=== PATIENT | female | born 1950 | race Caucasian/White ===

== ENCOUNTER 2022-07-05 08:36 | Day surgery (SDC) | payer OTHER, SELFPAY ==
[2022-06-27 09:46] VITALS: BMI 23.6
[2022-07-05] VITALS (13 sets, daily range): BP systolic 109–167; BP diastolic 46–89; PULSE 52–84; RESP 10–20; TEMP 35.8–36.6; O2SAT 90–100; BMI 23.6; BMI 24.5
--- NOTE | 2022-07-05 07:21 | DI.RAD.S_ITS ---
PROCEDURE: XR HIP W PEL IF DONE LT 2V INDICATIONS: INNER OP PICS. TECHNIQUE: 4 intraoperative views of the hip were acquired. COMPARISON: [facility], CR, XR HIP W PEL IF DONE LT 2V, 07/05/2022, 13:49. [facility], CR, XR PELVIS WITH LATERAL HIP LEFT, 04/11/2022, 15:10. FINDINGS: Left hip arthroplasty. Arthroplasty projects in the expected location. IMPRESSION: Intraoperative guidance provided. Dictated by: lAex Vallejo M.D. on 07/05/2022 at 16:41 Approved by: Alex Vallejo M.D. on 07/05/2022 at 16:42
[2022-07-05] MEDS: LACTATED RINGERS 1,000 ML 42 ML IV (09:30)
[2022-07-05] MEDS: CELECOXIB 200 MG CAPSULE PO (09:31)
[2022-07-05] MEDS: ACETAMINOPHEN 325 MG TABLET 975 MG PO (09:31)
[2022-07-05] MEDS: VANCOMYCIN 1,000 MG/200 ML PIGGYBACK 200 MG IV (10:14)
--- NOTE | 2022-07-05 10:53 | PM.PREOP ---
Pre-operative Note COVID-19 COVID-19 status: Negative Interval Note History & Physical reviewed/Exam performed by Physician: Yes Changes to H&P: No
--- NOTE | 2022-07-05 10:54 | PM.OP.1 ---
Operative Date/Time/Diagnoses Date of procedure: 07/05/22 Time of procedure: 11:30 Pre-op diagnosis: Severe left hip OA Post-op diagnosis: same Procedure & Clinicians Procedure: Left total hip arthroplasty anterior approach Same procedure as scheduled: Yes Indications: The patient has had progressively worsening left hip pain with radiographic changes consistent with arthritis. Non-operative management has failed and the patient has requested total hip replacement. The risks, benefits and alternatives to surgery were discussed with the patient prior to proceeding. Risks discussed included, but were not limited to, failure to relieve pain, leg length discrepancy, dislocation, stiffness, infection, nerve damage, deep venous thrombosis, pulmonary embolism, stroke, coma, heart attack, permanent paralysis and , as well as the potential need for eventual revision of the prosthetic. Surgeon: Jessica Cardenas Histology Technologist: An Jimenez Anesthesia Type: Spinal Operative Notes Findings: Severe hip osteoarthritis, soft femur, acceptable stability Closure Type: primary Specimen(s): none sent Prosthetic devices, grafts, tissues, transplants, or devices: Cardenas and Nephew anthology standard offset size 6, size 50 R3 cup, +0 Oxinium head,one 6.5 mm screw, neutral poly liner Estimated Blood Loss (mL): 250 Blood products transfused: none Procedure in detail: The patient was brought to the operating room. Patient was carefully positioned in the supine position. Time-out was performed and antibiotics were given. Anesthesia was induced. She was positioned in the on the table in order to allow hyperextension of the hip. The left lower extremity was prepped and draped in a standard sterile fashion. An anterior left hip incision was made 1 fingerbreadth lateral to the anterior superior iliac spine and extended distally towards the greater trochanter. Dissection was carried out through skin and subcutaneous tissues. Superficial hemostasis was achieved. The fascia over the tensor fascia cristian was defined and incised with a knife. Two Allis clamps were used to grasp the fascia. Tensor fascia cristian was retracted laterally. A gelpi retractor was placed. Dissection was carried out down along the neck. The circumflex vessels were carefully identified and cauterized with the Aqua Mantis. There was good visualization of the femoral neck. A Cobra was placed superior to the neck and the gluteus fibers were carefully stripped from that superior aspect of the capsule. A 2nd retractor was placed along the inferior aspect of the neck. The rectus insertion along the capsule was partially released. A 3rd retractor that was then gently placed over the rim of the acetabulum under the rectus. Capsule was carefully incised and released from the intertrochanteric line circumferentially superior to the mid sagittal line and inferiorly to the mid sagittal line until the lesser trochanter was palpable. A tag stitch was placed both in the superior and inferior limb of the capsular insertion. Along the acetabulum capsule was also released up to the mid sagittal 12:00 position. A portion of the labrum was resected. A saw was used to perform an osteotomy at the level of the intertrochanteric line and the junction of the superior femoral neck leaving approximately 1 finger breath of residual inferior neck above the lesser trochanter. A 2nd cut was made along the femoral neck at the base of the head and a napkin ring of neck was removed. Corkscrew was placed in the femoral head and the head was removed without difficulty. Retractors were then repositioned around the acetabulum. Residual labrum was resected and additional osteophytes were removed. A reamer that was 4 mm below the templated size was placed by hand in the acetabulum and it was reamed to centralize the acetabulum. It was then reamed up to 2 under the templated size and fluoroscopy was brought in to confirm the position of the reaming and depth of reaming. I reamed 1 under the anticipated size. A trial cup was placed and noted that it was appropriately sized and fluoroscopy confirmed position and depth. The component was open and inserted without difficulty fluoroscopic imaging was used to confirm that the cup had been adequately seated and was well positioned. It was further stabilized with a single screw. Neutral poly liner was placed. The cup was tested and noted to be stable. Attention was then directed to the femur. The femur was gently hyperextended additional capsular release was performed as needed in order to allow adequate visualization of the proximal femur with elevation of the femur. Patient was placed in a hyperextended slightly adducted position with maximum external rotation. Box osteotome was used to check for any residual neck as well as sclerotic bone along the trochanter. Viburnum pepper was placed in the femur. Additional broaching was performed. Canal finder was used to determine the alignment of the canal and position. Size 1 broach was placed. The canal was then appropriately broached up to the templated size as long as there was adequate stability of the broach and serial advancement of the broach without excessive impingement. Specific attention was directed at avoiding varus attempting to direct the distal aspect of the broach more anteriorly and avoiding excessive anteversion. Trial reduction showed acceptable range of motion, good stability, no posterior impingement, buddhism of leg length and appropriate lateral shuck. I also hyperflexed the hip and checked that there was no impingement anteriorly and there was good stability with flexion, adduction and internal rotation. Marcaine and Exparel were injected. The stem was placed without difficulty. Repeat trial reduction and x-ray showed acceptable overall position, length, and no evidence of the femoral fracture. Final head was placed. Wound was meticulously irrigated with normal saline. The hip was reduced and additional Exparel and Marcaine were injected. The capsule was closed with interrupted nonabsorbable sutures. The fascia of the tensor was closed with interrupted and running Vicryl. No drain was placed. Any tensor fascia cristian muscle that appeared to be contused or injured which was a minimal amount was carefully resected. Capsule around the tensor was injected with Exparel and Marcaine. The skin was closed with barbed stitches for the subcutaneous tissue and skin. We also used surgical glue. The wound was dressed sterilely. The wound was meticulously irrigated with normal saline. Patient was transferred to recovery room in satisfactory condition. Post-operative Condition: stable Disposition: Acute Care Plan for aftercare: The patient will be maintained on a standard total hip replacement protocol with weight bearing as tolerated and anterior hip precautions. The patient will receive Aspirin and sequential compression devices for DVT prophylaxis. The patient will be discharged home when safe for the home environment.
[2022-07-05] MEDS: diphenhydrAMINE 50 MG/ML VIAL 12.5 MG IV (11:16)
--- NOTE | 2022-07-05 11:17 | SUR.PREOP ---
Pt c/o itching, skin red to neck and upper back, no bumps, rashes or hives, no sob or tongue swelling. Medicated with Benedryl.
[2022-07-05] MEDS: CEFAZOLIN 2 GM/100 ML PREMIX 100 ML IV ×2 (11:30→19:49)
[2022-07-05] MEDS: TRANEXAMIC ACID 1,000 MG VIAL 2000 MG INJ ×2 (11:53→13:21)
--- NOTE | 2022-07-05 12:01 | SUR.OPER ---
Supine on padded [place] table with bilateral legs secured in padded positioning boots and suspended in positioning spars, operative leg in traction per surgeon. Head on one pillow. Arm on non-operative side secured on padded armboard <90 degrees abduction. Arm on operative side padded and resting across chest then secured with tape over sheet. Padded perineal post in place per surgeon.
[2022-07-05] MEDS: BUPIVACAINE LIPOSOME 266 MG/20 ML VIAL INJ (12:11)
--- NOTE | 2022-07-05 14:00 | DI.RAD.S_ITS ---
PROCEDURE: XR HIP W PEL IF DONE LT 2V INDICATIONS: LEFT TOTAL ANTERIOR HIP TECHNIQUE: AP pelvis with lateral view(s) of the left hip(s). COMPARISON: [facility], CR, XR PELVIS WITH LATERAL HIP LEFT, 04/11/2022, 15:10. [facility], CR, XR HIP W PEL IF DONE LT 2V, 07/05/2022, 12:57. FINDINGS: Bones: Patient is status post placement of a left total hip prosthesis. Surgical hardware appears in good position without evidence for hardware complication. No acute osseous abnormality is seen. There is some subcutaneous air noted in the soft tissues about the hip consistent with the recent surgery. There is mild osteoarthritic degenerative change involving the right hip. Soft tissues: The visualized bowel gas pattern is normal. No suspicious soft tissue calcifications. IMPRESSION: 1. Satisfactory postoperative appearance left total hip prosthesis. 2. No evidence for acute osseous abnormality. 3. Mild osteoarthritic degenerative change right hip. Dictated by: Pillo Durham M.D. on 07/05/2022 at 14:31 Approved by: Pillo Durham M.D. on 07/05/2022 at 14:35
[2022-07-05] MEDS: OXYCODONE IR 5 MG TABLET PO (14:27)
--- NOTE | 2022-07-05 14:34 | SUR.PHASEI ---
Report called to JOSE Rock.
--- NOTE | 2022-07-05 15:04 | SUR.PHASEI ---
Patient transferred to the floor with her belongings bag and walker. Report given to Pranav. VS stable. IV saline locked. Left hip dressing CDI.
[2022-07-05] MEDS: LACTATED RINGERS 1,000 ML 125 ML IV (15:24)
[2022-07-05] MEDS: IBUPROFEN 400 MG TABLET PO (17:49)
[2022-07-05] MEDS: ACETAMINOPHEN 325 MG TABLET 650 MG PO (17:49)
[2022-07-05] MEDS: ASPIRIN EC 81 MG TABLET PO (21:24)
[2022-07-05] MEDS: DOCUSATE 100 MG CAPSULE PO (21:24)
[2022-07-05] MEDS: SUMAtriptan 25 MG TABLET 50 MG PO (21:28)
[2022-07-06] MEDS: ACETAMINOPHEN 325 MG TABLET 650 MG PO ×2 (00:02→05:48)
[2022-07-06] MEDS: IBUPROFEN 400 MG TABLET PO ×2 (00:03→05:47)
[2022-07-06 00:39] VITALS: BP 158/75; PULSE 66; RESP 18; TEMP 36.6; O2SAT 97
[2022-07-06] MEDS: CEFAZOLIN 2 GM/100 ML PREMIX 100 ML IV (03:49)
[2022-07-06 04:13] LABS: Hematocrit 37.9 % (36-46)
--- NOTE | 2022-07-06 07:54 | P.DS_ITS ---
History of Present Illness History of Present Illness Date Patient Seen: 07/06/22 Time Patient Seen: 07:54 Chief complaint: OPB Narrative: Patient is complaining of mild left hip pain this morning. Overall she is doing well. She has not worked with physical therapy. She would like to be discharged home today. Discharge Providers Provider Discharge Date: 07/06/22 Primary care physician: Doctor Augusta MD Consults: 07/05/22 07:21 Consult to Anesthesiology Routine Comment: Consulting Provider: Anesthesiologist Reason for consultation: Regional block for post operative pain control 07/05/22 14:50 Consult to Discharge Planning Routine Comment: Consult to Physical Therapy Evaluate & Treat Comment: Physician Instructions: post op CLARA protocol Consult to Respiratory Therapy Evaluate & Treat Comment: Physician Instructions: Evaluate and treat Discharge provider: An Jimenez PA-C Summary Hospital Course Discharge Diagnosis: Severe left hip OA Hospital Course: Operative Date/Time/Diagnoses Date of procedure: 07/05/22 Time of procedure: 11:30 Procedure & Clinicians Procedure: Left total hip arthroplasty anterior approach Same procedure as scheduled: Yes Indications: The patient has had progressively worsening left hip pain with radiographic changes consistent with arthritis. Non-operative management has failed and the patient has requested total hip replacement. The risks, benefits and alterna tives to surgery were discussed with the patient prior to proceeding. Risks discussed included, but were not limited to, failure to relieve pain, leg length discrepancy, dislocation, stiffness, infection, nerve damage, deep venous thrombosis, pulmonary embolism, stroke, coma, heart attack, permanent paralysis and , as well as the potential need for eventual revision of the prosthetic. Surgeon: Jessica Cardenas Computer Equipment Installer: An Jimenez Anesthesia Type: Spinal Operative Notes Findings: Severe hip osteoarthritis, soft femur, acceptable stability Closure Type: primary Specimen(s): none sent Prosthetic devices, grafts, tissues, transplants, or devices: Cardenas and Nephew anthology standard offset size 6, size 50 R3 cup, +0 Oxinium head,one 6.5 mm screw, neutral poly liner Estimated Blood Loss (mL): 250 Blood products transfused: none Status at Discharge Cognitive/behavioral status at discharge: oriented Functional status at discharge: uses cane/walker Overall status at discharge: patient is progressing back to baseline Exam Vital Signs (past 8 hours): - 07/06/22 00:39 Temperature 97.9 F Pulse Rate 66 Respiratory Rate 18 Blood Pressure 158/75 H Pulse Oximetry 97 Oxygen Flow Rate 0 Oxygen Delivery Method Room Air Oxygen Flow Rate 0 Narrative Exam Narrative: Very pleasant 72-year-old female, resting comfortably in her chair, no acute distress. Dressing is clean, dry, intact. Bilateral lower extremity: Motor functions are grossly intact, sensation is grossly intact to light touch, bilateral calves are soft and nontender to palpation. Objective Labs Result Diagrams: 07/06/22 03:52 Labs: Laboratory Results - last 24 hr 07/06/22 03:52 Hgb 13.0 Hct 37.9 PFSH Medical History Depression Migraines Osteoarthritis Seasonal allergies Surgical History History of orthopedic surgery Hx of bilateral cataract extraction (2018) Hx of colonoscopy Social History household members: none Smoking Status: Former smoker alcohol intake: current Discharge Assessment & Plan Assessment and Plan Assessment: Stable status post left total hip arthroplasty, anterior approach Plan of Treatment: -mobilize with PT. Maintain anterior hip precautions x6 weeks. Weightbearing as tolerated. Aspirin 81 mg b.i.d. x6 weeks for DVT prophylaxis -continue with multimodal pain management -DC home once cleared by PT Discharge Plan Discharge Plan Patient Disposition: Home Discharge orders & Medications Discharge Orders: Discharge (Order); Ordered 07/06/22 Ordered By: An Jimenez Prescriptions: New oxycodone 5 mg Tablet 5 mg PO Q4HR PRN (Reason: Moderate to severe postop pain) Qty: 10 0RF docusate sodium 100 mg Capsule 100 mg PO BID PRN (Reason: Constipation from narcotic pain meds) Qty: 30 0RF acetaminophen 325 mg Tablet 650 mg PO Q6HR MDD Max 3000 mg per day PRN (Reason: fever or pain) Qty: 90 0RF aspirin 81 mg Tablet,Delayed Release (Dr/Ec) 81 mg PO BID 42 Days Qty: 84 0RF Rx Instructions: Prevent blood clots ibuprofen 400 mg Tablet 400 mg PO Q6HR MDD Max 2400 mg per day PRN (Reason: Pain/inflammation) Qty: 90 0RF Continued cetirizine [Zyrtec] 10 mg Tablet 10 mg PO DAILY PRN (Reason: Allergies) sumatriptan succinate 50 mg Tablet 50 mg PO Q2-4H PRN (Reason: Migraine Headache) Rx Instructions: do not exceed 4 doses per 24 hrs escitalopram oxalate 5 mg Tablet 5 mg PO DAILY Discontinued ibuprofen 200 mg Tablet 400 mg PO DAILY PRN (Reason: Pain) Follow up/Referrals: Doctor Deras MD [Primary Care Provider] - Jessica Cardenas MD [Physician] - (10-14 days for postoperative visit) Diet/Activity/Treatments Diet: Diet as Tolerated Other treatments: Dressing/Wound care: -Keep Aquacell dressing in place until postoperative follow-up office visit. -Okay to shower. Keep wound out of direct water stream. No soaking or submerging until all the scabs fall off (approximately 6 weeks). -No lotions, ointments, or scar creams directly to the incision until the wound is healed (4-6 weeks), -Please call the office if dressing becomes wet, soiled, or saturated. Activities: -Maintain anterior hip precautions x6 weeks. -Weight-bearing as tolerated. Use front wheeled walker, and progress to cane when safe. -Continue with home exercises as directed by your physical therapist. -Elevate ?toes above the nose if you have significant swelling in your lower leg. (A wedge pillow is easiest.) -Ice your incision as needed for pain/inflammation/swelling. Protect your skin with a folded pillowcase. Follow-up: -Follow-up with your surgeon or PA in the office in 10-14 days after surgery. -Follow-up with your surgeon 6 weeks postoperatively. Call the office if you have chest pain, shortness of breath, significant swelling that will not resolve with elevating, fever over 101?, significantly worsening pain, or are concerned you might need to go to the Emergency Room. [facility]: [phone] Skin/Wound/Dressing Care Report to your healthcare provider any signs of infection, such as:: chills, fever, night sweats, unusual drainage and unusual redness Visit Report/Discharge Packet Instructions: DI for Hip Replacement Stand Alone Forms: Surgery Discharge Discharge Data Primary Care Provider: Doctor Augusta Attending Provider: Jessica Cardenas Quality VTE Deep Vein Thrombosis/Pulmonary Embolism Present on Admission: No
[2022-07-06 08:15] VITALS: BP 139/63; PULSE 62; RESP 16; TEMP 36.1; O2SAT 97
[2022-07-06] MEDS: ASPIRIN EC 81 MG TABLET PO (08:42)
[2022-07-06] MEDS: ESCITALOPRAM 10 MG TABLET 5 MG PO (08:42)
[2022-07-06] MEDS: DOCUSATE 100 MG CAPSULE PO (08:43)
--- NOTE | 2022-07-06 09:06 | CM.DANOTE ---
DCP: Case received, EMR reviewed and met with patient. Introduced self and role. Was able to obtain information regarding patient's baseline activity status prior to her surgery. DCP assessment completed with information currently available. Patient is a 72 year old female who admitted yesterday morning to the care of the orthopedic team. PCP:LOIDA Maede at [facility]. Payer: confirmed: [facility]. Patient came to the hospital via private vehicle for a surgical procedure. Patient had left total hip arthroplasty, anterior approach. Patient has history of left hip osteoarthritis. Met with patient in her room. She was up with he walker, walking in her room, pleasant, alert and oriented and eager to go home. Patient is active, at her baseline. She resides in [place] [facility] alone. She has 13 acres, independent, and rides horses. She is a retired psychologist. She resides alone, but her friend, Mallory, will be assisting her when she goes home. She is already set up with outpatient P.T, on the [facility]. P: Patient has discharge orders for today. She will work with therapy again before she discharges. Chelsey Dean RN/Magazine Writer Discharge Planning/Care Management CM Discharge Assessment Start: 07/06/22 09:03 Freq: Status: Active Protocol: Document 07/06/22 09:03 (Rec: 07/06/22 09:05 [id number]) Discharge Planning Assessment Assigned Machinery Mover Chelsey Dean RN/Magazine Writer Advance Directives? Yes Advance Directives on File No History Provided By Patient,Medical Record Prior Living Arrangements House Household Members none Type of transporation used prior to Drives own vehicle admit Independent with ADL's Yes Is patient alert and oriented? Yes Caregiver for Another No Patient/Family Preference OP PT Therapy Comment Patient is planning on doing outpatient therapy on the [facility]. Barriers to Discharge No Discharge Plan Home Transportation Arrangement Friend Referrals Initiated None needed Whiteboard Updated in Patient Room with Yes name and ext. # of Machinery Mover Review Status In Process Next Review Type Continued Stay Review Pre-Anesthesia Assessment Start: 06/27/22 09:46 Freq: Status: Complete Protocol: Document 06/27/22 09:46 CAB (Rec: 06/27/22 10:34 CAB [id number]) Pre-Anesthesia Assessment Preferred Name Elsa Patient Information Reviewed Via Phone Assessment Assessment Completed With Patient Comment Labs/ECG surgeon has per pt not here, COVID screen @ [facility] 07/03/22 Primary Care Provider Erica Morales Seen Specialist in Last 12 Months Yes Specialist Seen Orthopedist Primary Language Kazakh Maintenance Supervisor Required No Height 5 ft 7 in Weight 151 lb Body Mass Index (BMI) 23.6 Hearing Ability Normal Visual Assist Magnifying Glass Dentition Type Teeth, Natural Present Barriers to Learning None Hx Anesthesia Reactions Yes: Nausea with fentanyl Hx Family Anesthesia Reaction Unknown, pt is adopted Hx Blood Transfusions No Anesthesia Review Requested No It Risk Analyst No alcohol intake current alcohol intake frequency holidays/special occasions only Smoking Status Former smoker how long ago did patient quit smoking As a kid Substance Use Type does not use Pain Present Pain Reported Musculoskeletal Symptoms Abnormal Gait,Difficulty Walking,Joint Pain History of Falling (Recent or History of Yes ) Patient is completely paralyzed or No completely immobile Mental Status Oriented to own ability Is patient on oxygen? No Does patient have POON/SOB No Hx Sleep Apnea No Currently Taking a Beta Miguel No Can You Climb a Flight of Stairs Without Yes SOB Hx Chest Pain No Hx SOB No Hx Syncope or Dizziness No Anti-Coagulant Therapy No Has a Group Worker No Cardiac Testing No Hx Pacemaker/ICD No Pacemaker Rep Required? No Cardiac Clearance Received Not Applicable Diet Type At Home Vegetarian dysphagia No Urinary Catheter Present No Hx Urinary Self Catheterization No Diabetes No Patient No Lactating No Hx Drug Resistant Organism No Presence of External or Internal Medical Yes: Bilat eye IOLs Devices Have you had any close contact with No someone diagnosed with COVID-19? Received a COVID vaccine? Yes Received all doses? Yes Marital Status Lives With none Prior Living Arrangements House Number of Floors (Floors) One Floor Support System Friend(s) Does the Patient Have Assistance After Yes: Friend will stay with Surgery patient to assist at DC Patient Discharge Plan Description Return Home Comment Pt is wanting to go home same day Feels Safe in Current Environment Yes Been Physically Hurt or Threatened By a No Person in Current Environment Do you have thoughts of harming yourself None or others? Are you currently considering suicide? No Do you have a plan to hurt yourself or No Plan others? Do You Have Any Spiritual Beliefs That No May Affect Your HC Choices? Do You Have Any Cultural Practices That No May Affect Your HC Choices? Who Can We Speak to About Patient's Care Family, peng Identifying Code for Release of Patient Declines to issue Information Health Care Proxy/Next of Kin Mendel Barker (custodial friend) Health Care Proxy Emergency Contact Name Avelina (good friend) Emergency Contact Advance Directives? Yes Advance Directives on File No Requested Patient Bring Advanced Yes Directives DOS Power of Corporate Executive Yes Power of Corporate Executive Name Mendel Barker (vermin exterminator friend) Power of Corporate Executive PAC Instructions Do not shave/clip surgical site,Durable medical equipment ,Medications to take/avoid, Nasal antibiotic,No ETOH/ petroleum product on skin DOS, NPO,Pre-surgical wash,Sensory aids,Sturdy shoes/comfortable clothes,Do not bring valuables and remove jewelry
--- NOTE | 2022-07-06 09:25 | PT.IIE ---
Current Diagnoses Unilateral primary osteoarthritis, left hip (07/05/22) Pain in left hip (07/05/22) Surgery Performed Operation Date: 07/05/22 10:45 Actual Procedures p Total Hip Arthroplasty/Anterior Approach(Left) - Jessica Cardenas MD Surgical History (Last Reviewed 07/06/22 @ 07:55 by An Jimenez PA-C) History of orthopedic surgery Hx of bilateral cataract extraction (2018) Hx of colonoscopy Medical History (Last Reviewed 07/06/22 @ 07:55 by An Jimenez PA-C) Depression Migraines Osteoarthritis Seasonal allergies Physical Therapy Inpatient Evaluation/Re-Eval M1 PT/OT-IP Prior Functional Status Start: 07/06/22 12:10 Freq: NEEDED Status: Discharge Protocol: Document 07/06/22 09:25 AB (Rec: 07/06/22 12:23 AB [email or web address]) Medical Review Prior Functional Status Medical History Reviewed Yes Communication able to make needs known Mobility and Gait pt stated that she is independent with all mobilities and ambulation without AD but occasionally uses forearm crutches depending on hip pain Social History Household Members none Living Arrangements House Number of Floors (Floors) One Floor Number of Stairs To Enter/Railing? 5 steps to enter with L rail ascending from the garage Home Environment Standard Height Toilet,Walk in Shower Home Equipment Front Wheel Walker,Crutches Additional Social History Comment pt stated that her friend will stay with her for ~ 2days to assist her and will have friends/neighbors to assist as needed afterwards M2 PT-IP Current Condition Start: 07/06/22 12:10 Freq: NEEDED Status: Discharge Protocol: Document 07/06/22 09:25 AB (Rec: 07/06/22 12:23 AB [email or web address]) Physical Therapy Current Condition Current Condition Evaluation Date 07/06/22 Treatment Diagnosis s/p L CLARA anterior approach; difficulty in walking Onset Date 07/05/22 M3 PT-IP Subjective Start: 07/06/22 12:10 Freq: NEEDED Status: Discharge Protocol: Document 07/06/22 09:25 AB (Rec: 07/06/22 12:23 AB [email or web address]) Subjective Physical Therapy Visit Type Type Initial Evaluation Visit Start Time 09:25 Visit Stop Time 10:15 Total Visit Minutes 50 Number of FINANCIAL AID ADVISOR Visits 0 Physical Therapy Visit Comments Patient Comments pt is agreeable to do PT Therapy Pain Assessment Pain When Pain Assessed At Rest Pain Present Pain Present Pain Reported Location left hip Intensity 1 Scale Used Numeric (0 - 10) Pain Management Techniques Distraction,Modification of Treatment,Re-positioning M4 PT-IP Mobility and Gait Start: 07/06/22 12:10 Freq: NEEDED Status: Discharge Protocol: Document 07/06/22 09:25 AB (Rec: 07/06/22 12:23 AB [id number]) PT-Bed Mobility Assessment Supine to Sit Supine to Sit Standby Assistance Sit to Supine Sit to Supine Standby Assistance PT-Transfer Assessment Sit to and From Stand Sit to and from Stand Standby Assistance,1 Person Assistance,Use of Upper Extremities Equipment Transfer Assistive Device Gait Belt,Front Wheeled Walker Orthotic/Prosthetic Devices or Brace: No Transfers Transfer Destination Bed,Chair Transfer Technique ambulated Transfer Ability Level of Assist Standby Assistance,Use of Upper Extremities Comments Mobility Comments reviewed hip precautions with pt and pt able to recall. completed sit to stand from the chair SBA and ambulated to EOB ~ 15 ft using FWW SBA with occasionally cues for hip precautions. completed sit<> supine SBA. pt ambulated in the hallway using FWW ~ 150 ft SBA. educated pt on stair climbing uisng L rail. pt completed up/ down steps holding on to L rail with B hands SBA. completed x 2. pt ambulated back to the room using FWW SBA and sat back on chair. pt wanted to practice bed mobility again and ambulated to EOB SBA and completed bed mobility SBA. ambulated back to chair using FWW SBA. call light and table placed within reach. pt without further concerns. Gait Assessment Gait Gait Assistance Required: Standby Assistance Distance (Feet) 150 Able to Maintain Weight Bearing Status Yes During Gait Assistive Devices Assistive Device Gait Belt,Front Wheeled Walker Orthotic/Prosthetic Devices or Brace: No Gait Deviations General Gait Pattern Decreased Stride Length, Decreased Feet Clearance Factors Limiting Gait Function Factors Limiting Gait Function Decreased Strength,Limited Range of Motion,Pain,Poor Balance,Poor Safety Awareness Stair Climbing Assessment Evaluation Level of Assist On Stairs Standby Assistance Devices Stair Climbing Assistive Devices Left Railing Technique/Endurance Stair Climbing Direction Ascend and Descend Stair Climbing Technique Step to Step Number of Steps Climbed 3 Query Text: Stair Climbing Set # Repetitions (reps) 2 PT-Balance Assessment Sitting Balance and Reactions Static Sitting Balance Ability Normal Dynamic Sitting Balance Ability Good Standing Balance and Reactions Static Standing Balance Ability Good Dynamic Standing Balance Ability Fair Device Used FWW M5 PT-IP Objective Assessments Start: 07/06/22 12:10 Freq: NEEDED Status: Discharge Protocol: Document 07/06/22 09:25 AB (Rec: 07/06/22 12:23 AB [email or web address]) Orientation Orientation/Cognition Level of Alertness Alert Orientation Name,Situation Language Function Ability No Deficits Noted Safety Awareness Decreased Safety Awareness Memory Description Short Term Impaired Gross Range of Motion Lower Extremity ROM Assessment Within Functional Limits Strength Lower Extremity Strength Assessment Left Impaired Hip 3+/5 Knee 4/5 Coordination Assessment Gross Coordination Gross Coordination WNL Muscle Tone Muscle Tone WNL Yes M6 PT-IP Treatment Start: 07/06/22 12:10 Freq: NEEDED Status: Discharge Protocol: Document 07/06/22 09:25 AB (Rec: 07/06/22 12:23 [facility] Treatment Education Education Provided Precautions,Weight Bearing Status,Post-Op Packet,Safety M7 PT-IP Assessment and Plan Start: 07/06/22 12:10 Freq: NEEDED Status: Discharge Protocol: Document 07/06/22 09:25 AB (Rec: 07/06/22 12:23 AB [email or web address]) PT Summary Assessment and Plan Potential Rehabilitation Potential Good Status of Condition at Evaluation Stable Summary Impairments Pain,ROM,Strength,Balance, Coordination,Sensation,Tone, Cognition,Bed Mobility, Transfers,Gait,Activity Tolerance Assessment Summary pt requiring SBA with mobility using fWW and plans to go home with her friend to assist her. pt may go home when medically stable. Goals Bed Mobility Goal Independent Transfer Goal Independent,Front Wheeled Walker Gait Goal Independent,Front Wheel Walker Gait Distance 250 Other Goals up/down 5 steps L rail mod I Frequency of Treatment Frequency Of Treatment Twice a Day Treatment Plan Physical Therapy Treatment Plan Bed Mobility Training,Transfer Training,Gait Training, Therapeutic Exercise,Balance Retraining,Post Op Education, Discharge Planning,Hot or Cold Pack,Neuromuscular Re-ed, Coordination Retraining,Manual Therapy Precautions Anterior Hip Precautions No Hip Extension,No Hip External Rotation Weight Bearing Status Weight Bearing Status Weight Bear as Tolerated Allowed Weight Bearing Amount (enter % LLE WBAT or #) (%) Recommendations To Nursing Amount of Assist Needed Standby Assistance Discharge Recommendations PT Discharge Recommendations Home with Assistance, Outpatient PT Transportation Needs at Discharge Private Vehicle
--- NOTE | 2022-07-06 12:15 | PC.NURSE ---
Pt is A&Ox3, VSS, afebrile on RA. PA at bedside evaluating patient clears her for discharge home pending PT clearance.She reports her post op pain is very minimal this a.m. at 1/10 just muscle soreness and she is cleared by PT to discharge home. Aquacel to L hip is C/D/I and she ambulates independently in the room using FWW.She verbalizes understanding of activity, medications, site care, signs of infection and follow up instructions. She is escorted by [employer]ER OPERATOR via w/ch to private vehicle with her friend with all of her belongings at approximately 11 a.m.
== END 2022-07-06 11:05 | disposition home or self-care (01) ==
LOC: OR 08:39 → AC 08:45
PROVIDERS: Referring Provider Orthopaedic Surgery; Visit Provider Orthopaedic Surgery
PROC: (CPT 27130; principal; 2022-07-05 10:45)
DX: M16.12 Unilateral primary osteoarthritis, left hip (principal)
CPT/HCPCS: 27130; 01214; 36415; 73502; 76000; 85014; 85018; 97116; 97161; C1776; C9290; J0690; J1100; J1200; J2250; J2405; J3010